=== PATIENT | female | born 1990 | race African-American/Black ===

== ENCOUNTER 2018-05-30 16:36 | Emergency (ER) | payer SELFPAY | END 2018-05-30 19:30 | disposition left against medical advice (07) | LOC: ER 16:36 | DX: Z53.21 Procedure and treatment not carried out due to patient leaving prior to being seen by health care provider (principal) ==

== ENCOUNTER 2020-02-12 13:23 | Emergency (ER) | payer MEDICAID ==
[2020-02-12] MEDS ORDERED: PREN-52 MT (14:24)
== END 2020-02-12 14:32 | disposition left against medical advice (07) ==
LOC: ER 13:23
DX: Z53.21 Procedure and treatment not carried out due to patient leaving prior to being seen by health care provider (principal)

== ENCOUNTER 2020-02-12 13:38 | Observation (INO) | payer MEDICAID ==
[~2020-02-12] VITALS: Ht 160 cm; Wt 85.7 kg
[2020-02-12] MEDS ORDERED: PREN-52 MT (14:24)
== END 2020-02-12 17:15 | disposition home or self-care (01) ==
LOC: 8EST 13:38 → 8 EST LDRP 14:05
PROVIDERS: ADMIT Obstetrics & Gynecology; ATTEND Obstetrics & Gynecology
DX: O9A.213 Injury, poisoning and certain other consequences of external causes complicating pregnancy, third trimester (principal); O36.8130 Decreased fetal movements, third trimester, not applicable or unspecified; Z3A.32 32 weeks gestation of pregnancy; V49.9XXA Car occupant (driver) (passenger) injured in unspecified traffic accident, initial encounter; Y93.89 Activity, other specified; Y92.488 Other paved roadways as the place of occurrence of the external cause
CPT/HCPCS: 59025; 76815; 76818; G0378; 99281